=== PATIENT | male | born 1980 | race Caucasian/White ===

== ENCOUNTER 2017-05-28 17:52 | Emergency (ER) | payer OTHER ==
[~2017-05-28] VITALS: Ht 175.3 cm; Wt 82.0 kg
[~2017-05-28 17:52] MED LIST: CLIN1CAP6 PO; FERR324T4 PO; LACT PO
[2017-05-28 18:02] VITALS: BP 106/55; PULSE 118; RESP 16; TEMP 99; O2SAT 96
[2017-05-28] MEDS ORDERED: SODIUM CHLOR 0.9% 1000 ML INJ 1,000 ML IV ONE ×2 (18:08)
[2017-05-28] MEDS ORDERED: SODIUM CHLOR 0.9% 1000 ML INJ 400 ML IV ONE (18:08)
--- NOTE | 2017-05-28 18:38 | RADRPT ---
EXAM DATE/TIME: 05/28/2017 18:14 [facility] COMPARISON: CHEST SINGLE AP, July 29, 2015, 21:09. INDICATIONS : Fever. MEDICAL HISTORY : Unobtainable SURGICAL HISTORY : Unobtainable ENCOUNTER: Initial ACUITY: 1 day PAIN SCORE: Non-responsive. LOCATION: Bilateral chest FINDINGS: No significant new focal pleural or parenchymal opacities. Cardiomediastinal contours are stable. Hea led right midclavicular fracture. Osseous structures are intact. CONCLUSION: 1. No acute abnormality or significant interval change. Enoch Wilson MD on May 28, 2017 at 18:35 Board Certified Radiologist. This report was verified electronically.
[2017-05-28 18:40] VITALS: RESP 16; O2SAT 98
[2017-05-28 18:49] LABS: AUTOMATED NEUTROPHIL # 4.6 TH/MM3 (1.8-7.7); BASOPHIL % 0.8 % (0.0-2.0); EOSINOPHIL % 0.3 % (0.0-4.0); LYMPHOCYTE # 0.5 TH/MM3 (1.0-4.8); MEAN CELL VOLUME 67.7 FL (80.0-100.0); MEAN CORPUSCULAR HEMOGLOBIN 20.8 PG (27.0-34.0); MEAN CORPUSCULAR HGB CONC 30.7 % (32.0-36.0); MONO % 8.5 % (0.0-8.0); NEUT % 81.4 % (16.0-70.0); PLATELET COUNT 167 TH/MM3 (150-450); RED BLOOD COUNT 4.87 MIL/MM3 (4.50-5.90); RED CELL DISTRIBUTION WIDTH 26.7 % (11.6-17.2); WHITE BLOOD COUNT 5.6 TH/MM3 (4.0-11.0)
[2017-05-28 18:50] LABS: HEMO FLAGS AUTO DIFF
[2017-05-28 18:56] LABS: BLOOD, URINE TRACE (NEG); COMMENT (UR) CATH-CULT NOT IND; CULTURE IF INDICATED CATH CULTURE NOT IND; GLUCOSE,URINE NEG (NEG); HYALINE CAST, URINE 19 /lpf (RARE); KETONE, URINE TRACE mg/dL (NEG); MUCUS URINE FEW /lpf (OCC); NITRITE,URINE NEG (NEG); PH, URINE 5.5 (5.0-8.5); URINE COLOR YELLOW (YELLW/STRAW)
[2017-05-28 18:57] LABS: APTT (PATIENT) 24.2 SEC (24.3-30.1); INTERNATIONAL NORMALIZED RATIO 1.1 RATIO; PROTHROMBIN TIME - PATIENT 11.3 SEC (9.8-11.6)
[2017-05-28 19:09] LABS: ANION GAP 7 MEQ/L (5-15); AST (GOT) 34 U/L (15-37); BICARBONATE 26.3 MEQ/L (21.0-32.0); BLOOD UREA NITROGEN 11 MG/DL (7-18); CHLORIDE 107 MEQ/L (98-107); GLOMERULAR FILTRATION RATE 91 ML/MIN (>89); MAGNESIUM 2.2 MG/DL (1.5-2.5); POTASSIUM 4.2 MEQ/L (3.5-5.1); SODIUM (NA) 140 MEQ/L (136-145)
[2017-05-28 19:10] LABS: ALT (GPT) 27 U/L (12-78)
[2017-05-28 19:11] LABS: OVALOCYTES 1+ (NORMAL); PLATELET ESTIMATE SMEAR NORMAL (NORMAL); PLATELET MORPHOLOGY NORMAL (NORMAL); SCAN/DIFF AUTO DIFF CONFIRMED
[2017-05-28 19:14] LABS: ALKALINE PHOSPHATASE 72 U/L (45-117); CREATINE KINASE 239 U/L (39-308); TOTAL BILIRUBIN ADULT 0.3 MG/DL (0.2-1.0)
--- NOTE | 2017-05-28 19:14 | PD ---
HPI Chief Complaint: Altered Mental Status Time Seen by Provider: 18:34 Travel History International Travel<30 days: No Contact w/Intl Traveler<30days: No Traveled to known affect area: No History of Present Illness HPI Patient is a 36-year-old male presenting to the emergency department in the custody of law enforcement. According to EMS report patient presented to the [facility] at the skilled nursing complaining of abdominal pain, he then began to "lose it" . He was acting erratically and attempted to bite his right forearm. Guard state the patient has a history of drug use and there has been K2 circulating around the skilled nursing. Patient was given Ativan en route to the hospital. On arrival he is drowsy and is not answering questions. [facility] Past Medical History Medical History: Unable to Obtain Tetanus Vaccination: < 5 Years Past Surgical History Surgical History: Unable to Obtain Social History Alcohol Use: No Tobacco Use: Yes Substance Use: Yes Allergies-Medications (Allergen,Severity, Reaction): Coded Allergies: doxycycline (Unverified Allergy, Unknown, 05/28/17) penicillin G (Unverified Allergy, Unknown, 05/28/17) *MDRO Multi-Drug Resistant Organism (Verified Adverse Reaction, Unknown, 05/28/17) MRSA PCR positive 07/30/2015 MRSA arm wound 07/30/2015 Reported Meds & Prescriptions Reported Meds & Active Scripts Active Active Prescriptions or Reported Medications Unobtainable Review of Systems ROS Limitations: Uncooperative Except as stated in HPI: all other systems reviewed are Neg Cardiovascular: Positive: Tachycardia Gastrointestinal: Positive: Abdominal Pain Psychiatric: Positive: Substance Abuse Physical Exam Narrative GENERAL: Well-developed, well-nourished, drowsy male. Resting in no acute distress. SKIN: Warm and dry. Superficial bite jaime to right forearm just proximal to the wrist HEAD: Atraumatic. Normocephalic. EYES: Pupils equal and round. No scleral icterus. No injection or drainage. ENT: No nasal bleeding or discharge. Mucous membranes pink and moist. NECK: Trachea midline. No JVD. CARDIOVASCULAR: Tachycardic RESPIRATORY: No accessory muscle use. Clear to auscultation. Breath sounds equal bilaterally. GASTROINTESTINAL: Abdomen soft, non-tender, nondistended. Hepatic and splenic margins not palpable. MUSCULOSKELETAL: Extremities without clubbing, cyanosis, or edema. No obvious deformities. NEUROLOGICAL: Awake and alert. No obvious cranial nerve deficits. Motor grossly within normal limits. Five out of 5 muscle strength in the arms and legs. Normal speech. Data Data Last Documented VS Vital Signs Date Time Temp Pulse Resp B/P (MAP) Pulse Ox O2 Delivery O2 Flow Rate FiO2 05/28/17 19:58 84 16 112/61 (78) 100 Nasal Cannula 2.00 05/28/17 18:02 99.0 Orders Orders Sepsis Workup Initiated (05/28/17 ) Electrocardiogram (05/28/17 18:08) Complete Blood Count With Diff (05/28/17 18:08) Comprehensive Metabolic Panel (05/28/17 18:08) Prothrombin Time / Inr (Pt) (05/28/17 18:08) Act Partial Throm Time (Ptt) (05/28/17 18:08) Lactic Acid Sepsis Protocol (05/28/17 18:08) Magnesium (Mg) (05/28/17 18:08) Lipase (05/28/17 18:08) Ckmb (Isoenzyme) Profile (05/28/17 18:08) Troponin I (05/28/17 18:08) Urinalysis - C+S If Indicated (05/28/17 18:08) Blood Culture (05/28/17 18:08) Chest, Single Ap (05/28/17 18:08) Blood Glucose (05/28/17 18:08) Ecg Monitoring (05/28/17 18:08) Iv Access Insert/Monitor (05/28/17 18:08) Oximetry (05/28/17 18:08) Oxygen Administration (05/28/17 18:08) Ct Brain W/O Iv Contrast(Rout) (05/28/17 18:08) Sodium Chlor 0.9% 1000 Ml Inj (Ns 1000 M (05/28/17 18:08) Sodium Chlor 0.9% 1000 Ml Inj (Ns 1000 M (05/28/17 18:08) Sodium Chlor 0.9% 1000 Ml Inj (Ns 1000 M (05/28/17 18:08) Drug Screen, Random Urine (05/28/17 18:08) Ct Abd/Pel W Iv Contrast(Rout) (05/28/17 ) Cath For Specimen (05/28/17 18:08) CKMB (05/28/17 18:20) CKMB% (05/28/17 18:20) Iohexol 350 Inj (Omnipaque 350 Inj) (05/28/17 19:37) Ed Discharge Order (05/28/17 21:16) Labs Laboratory Tests Test 05/28/17 18:20 05/28/17 18:33 05/28/17 20:15 White Blood Count 5.6 TH/MM3 Red Blood Count 4.87 MIL/MM3 Hemoglobin 10.1 GM/DL Hematocrit 33.0 % Mean Corpuscular Volume 67.7 FL Mean Corpuscular Hemoglobin 20.8 PG Mean Corpuscular Hemoglobin Concent 30.7 % Red Cell Distribution Width 26.7 % Platelet Count 167 TH/MM3 Mean Platelet Volume 9.2 FL Neutrophils (%) (Auto) 81.4 % Lymphocytes (%) (Auto) 9.0 % Monocytes (%) (Auto) 8.5 % Eosinophils (%) (Auto) 0.3 % Basophils (%) (Auto) 0.8 % Neutrophils # (Auto) 4.6 TH/MM3 Lymphocytes # (Auto) 0.5 TH/MM3 Monocytes # (Auto) 0.5 TH/MM3 Eosinophils # (Auto) 0.0 TH/MM3 Basophils # (Auto) 0.0 TH/MM3 CBC Comment AUTO DIFF Differential Comment AUTO DIFF CONFIRMED Platelet Estimate NORMAL Platelet Morphology Comment NORMAL Ovalocytes 1+ Prothrombin Time 11.3 SEC Prothromb Time International Ratio 1.1 RATIO Activated Partial Thromboplast Time 24.2 SEC Blood Urea Nitrogen 11 MG/DL Creatinine 0.93 MG/DL Random Glucose 92 MG/DL Total Protein 7.2 GM/DL Albumin 3.9 GM/DL Calcium Level 8.3 MG/DL Magnesium Level 2.2 MG/DL Alkaline Phosphatase 72 U/L Aspartate Amino Transf (AST/SGOT) 34 U/L Alanine Aminotransferase (ALT/SGPT) 27 U/L Total Bilirubin 0.3 MG/DL Sodium Level 140 MEQ/L Potassium Level 4.2 MEQ/L Chloride Level 107 MEQ/L Carbon Dioxide Level 26.3 MEQ/L Anion Gap 7 MEQ/L Estimat Glomerular Filtration Rate 91 ML/MIN Lactic Acid Level 2.6 mmol/L 0.9 mmol/L Total Creatine Kinase 239 U/L Creatine Kinase MB 1.5 NG/ML Troponin I LESS THAN 0.02 NG/ML Lipase 101 U/L Urine Color YELLOW Urine Turbidity CLEAR Urine pH 5.5 Urine Specific [place] 1.021 Urine Protein 30 mg/dL Urine Glucose (UA) NEG mg/dL Urine Ketones TRACE mg/dL Urine Occult Blood TRACE Urine Nitrite NEG Urine Bilirubin NEG Urine Urobilinogen LESS THAN 2.0 MG/DL Urine Leukocyte Esterase NEG Urine RBC 16 /hpf Urine WBC 2 /hpf Urine Hyaline Casts 19 /lpf Urine Mucus FEW /lpf Microscopic Urinalysis Comment CATH-CULT NOT IND Urine Opiates Screen NEG Urine Barbiturates Screen NEG Urine Amphetamines Screen NEG Urine Benzodiazepines Screen NEG Urine Cocaine Screen NEG Urine Cannabinoids Screen NEG MDM Medical Decision Making Medical Screen Exam Complete: Yes Emergency Medical Condition: Yes Interpretation(s) Vital Signs Date Time Temp Pulse Resp B/P (MAP) Pulse Ox O2 Delivery O2 Flow Rate FiO2 05/28/17 19:58 84 16 112/61 (78) 100 Nasal Cannula 2.00 05/28/17 18:40 16 98 Nasal Cannula 2.00 05/28/17 18:40 98 Nasal Cannula 2.00 05/28/17 18:02 99.0 118 16 106/55 (72) [address] 05/28/171807 Signed Impressions: Service Date/Time: Sunday, May 28, 2017 19:18 - CONCLUSION: 1. No acute intracranial abnormality. 2. 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 Sukhi Reilly MD Chest X-Ray 05/28/171807 Signed Impressions: Service Date/Time: Sunday, May 28, 2017 18:14 - CONCLUSION: 1. No acute abnormality or significant interval change. Enoch Wilson MD Abdomen/Pelvis CT 05/28/17 0000 Signed Impressions: Service Date/Time: Sunday, May 28, 2017 19:23 - CONCLUSION: 1. No acute abnormality demonstrated. 2. There is a 3 mm nonobstructing stone of the right kidney. Sukhi Reilly MD Laboratory Tests Test 05/28/17 18:20 05/28/17 18:33 05/28/17 20:15 White Blood Count 5.6 TH/MM3 Red Blood Count 4.87 MIL/MM3 Hemoglobin 10.1 GM/DL Hematocrit 33.0 % Mean Corpuscular Volume 67.7 FL Mean Corpuscular Hemoglobin 20.8 PG Mean Corpuscular Hemoglobin Concent 30.7 % Red Cell Distribution Width 26.7 % Platelet Count 167 TH/MM3 Mean Platelet Volume 9.2 FL Neutrophils (%) (Auto) 81.4 % Lymphocytes (%) (Auto) 9.0 % Monocytes (%) (Auto) 8.5 % Eosinophils (%) (Auto) 0.3 % Basophils (%) (Auto) 0.8 % Neutrophils # (Auto) 4.6 TH/MM3 Lymphocytes # (Auto) 0.5 TH/MM3 Monocytes # (Auto) 0.5 TH/MM3 Eosinophils # (Auto) 0.0 TH/MM3 Basophils # (Auto) 0.0 TH/MM3 CBC Comment AUTO DIFF Differential Comment AUTO DIFF CONFIRMED Platelet Estimate NORMAL Platelet Morphology Comment NORMAL Ovalocytes 1+ Prothrombin Time 11.3 SEC Prothromb Time International Ratio 1.1 RATIO Activated Partial Thromboplast Time 24.2 SEC Blood Urea Nitrogen 11 MG/DL Creatinine 0.93 MG/DL Random Glucose 92 MG/DL Total Protein 7.2 GM/DL Albumin 3.9 GM/DL Calcium Level 8.3 MG/DL Magnesium Level 2.2 MG/DL Alkaline Phosphatase 72 U/L Aspartate Amino Transf (AST/SGOT) 34 U/L Alanine Aminotransferase (ALT/SGPT) 27 U/L Total Bilirubin 0.3 MG/DL Sodium Level 140 MEQ/L Potassium Level 4.2 MEQ/L Chloride Level 107 MEQ/L Carbon Dioxide Level 26.3 MEQ/L Anion Gap 7 MEQ/L Estimat Glomerular Filtration Rate 91 ML/MIN Lactic Acid Level 2.6 mmol/L 0.9 mmol/L Total Creatine Kinase 239 U/L Creatine Kinase MB 1.5 NG/ML Troponin I LESS THAN 0.02 NG/ML Lipase 101 U/L Urine Color YELLOW Urine Turbidity CLEAR Urine pH 5.5 Urine Specific [place] 1.021 Urine Protein 30 mg/dL Urine Glucose (UA) NEG mg/dL Urine Ketones TRACE mg/dL Urine Occult Blood TRACE Urine Nitrite NEG Urine Bilirubin NEG Urine Urobilinogen LESS THAN 2.0 MG/DL Urine Leukocyte Esterase NEG Urine RBC 16 /hpf Urine WBC 2 /hpf Urine Hyaline Casts 19 /lpf Urine Mucus FEW /lpf Microscopic Urinalysis Comment CATH-CULT NOT IND Urine Opiates Screen NEG Urine Barbiturates Screen NEG Urine Amphetamines Screen NEG Urine Benzodiazepines Screen NEG Urine Cocaine Screen NEG Urine Cannabinoids Screen NEG Differential Diagnosis Sepsis versus obstruction versus metabolic abnormality versus substance abuse versus other Narrative Course Patient is a 36-year-old male brought into the emergency department for evaluation of altered mental status. There is a possibility that the patient used K2 at the skilled nursing. He did complain of abdominal pain prior to his erratic behavior starting. Labs and imaging ordered and pending. Patient is restrained in handcuffs and there are guards at the bedside. Sepsis workup initiated. IV fluids ordered. CBC with no acute findings CMP with no acute findings Initial lactic acid is 2.6, 3L IVFs ordered per sepsis protocol UA is not consistent with UTI UDS is negative. Pt reassessed and is more alert and answering questions appropriately. Will reassess lactic acid if normal patient will be discharged to law enforcement. Lactic acid 0.9. Patient continues to deny any any drug use. He is alert, oriented and awake. He is responding appropriately. Patient will be discharged back to law enforcement custody. Wound care to right wrist performed prior to discharge. Diagnosis Primary Impression: Medical clearance for incarceration Additional Impression: Lactic acid increased Referrals: Primary Care Physician Patient Instructions: General Instructions Med/Other Pt SpecificInfo: No Change to Meds Scripts Unable to Obtain Active Prescriptions or Reported Meds Disposition: [address] [employer] ENFORCEMNT Condition: Stable Helen Suero Jazmin ROBBINS May 28, 2017 19:14
[2017-05-28 19:26] LABS: CKMB 1.5 NG/ML (0.5-3.6)
[2017-05-28] MEDS ORDERED: IOHEXOL 350 MG/ML 10 ML VIAL (for RAD DIAG) IVCONTRAST ONE (19:37)
--- NOTE | 2017-05-28 19:41 | RADRPT ---
EXAM DATE/TIME: 05/28/2017 19:18 [facility] COMPARISON: No previous studies available for comparison. INDICATIONS : Altered mental status. RADIATION DOSE: 52.69 CTDIvol (mGy) MEDICAL HISTORY : None SURGICAL HISTORY : None. ENCOUNTER: Initial ACUITY: 1 day PAIN SCALE: 0/10 LOCATION: cranial TECHNIQUE: Multiple contiguous axial images were obtained of the head. Using automated exposure control and adj ustment of the mA and/or kV according to patient size, radiation dose was kept as low as reasonably a chievable to obtain optimal diagnostic quality images. DICOM format image data is available electro nically for review and comparison. FINDINGS: CEREBRUM: The ventricles are normal for age. No evidence of midline shift, mass lesion, hemorrhage or acute in farction. No extra-axial fluid collections are seen. Areas of chronic encephalomalacia are seen infe riorly of the frontal lobes, left worse than right POSTERIOR FOSSA: The cerebellum and brainstem are intact. The 4th ventricle is midline. The cerebellopontine angle i s unremarkable. EXTRACRANIAL: The visualized portion of the orbits is intact. SKULL: The calvaria is intact. No evidence of skull fracture. CONCLUSION: 1. No acute intracranial abnormality. 2. 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 Sukhi Reilly MD on May 28, 2017 at 19:37 Board Certified Radiologist. This report was verified electronically.
--- NOTE | 2017-05-28 19:47 | RADRPT ---
EXAM DATE/TIME: 05/28/2017 19:23 [facility] COMPARISON: No previous studies available for comparison. INDICATIONS : Diffuse abdominal pain. IV CONTRAST: 72 cc Omnipaque 350 (iohexol) IV ORAL CONTRAST: No oral contrast ingested. RADIATION DOSE: 12.63 CTDIvol (mGy) MEDICAL HISTORY : None SURGICAL HISTORY : None. ENCOUNTER: Initial ACUITY: 1 day PAIN SCALE: 4/10 LOCATION: Bilateral abdomen TECHNIQUE: Volumetric scanning of the abdomen and pelvis was performed. Using automated exposure control and ad justment of the mA and/or kV according to patient size, radiation dose was kept as low as reasonably achievable to obtain optimal diagnostic quality images. DICOM format image data is available electro nically for review and comparison. FINDINGS: LOWER LUNGS: The visualized lower lungs are clear. LIVER: Homogeneous density without lesion. There is no dilation of the biliary tree. No calcified gallston es. SPLEEN: Normal size without lesion. PANCREAS: Within normal limits. KIDNEYS: There is a 3 mm nonobstructing stone in the right mid zone to lower pole. ADRENAL GLANDS: Within normal limits. VASCULAR: There is no aortic aneurysm. BOWEL/MESENTERY: The stomach, small bowel, and colon demonstrate no acute abnormality. There is no free intraperitone al air or fluid. ABDOMINAL WALL: Within normal limits. RETROPERITONEUM: There is no lymphadenopathy. BLADDER: No wall thickening or mass. REPRODUCTIVE: Within normal limits. INGUINAL: There is no lymphadenopathy or hernia. MUSCULOSKELETAL: Within normal limits for patient age. CONCLUSION: 1. No acute abnormality demonstrated. 2. There is a 3 mm nonobstructing stone of the right kidney. Sukhi Reilly MD on May 28, 2017 at 19:42 Board Certified Radiologist. This report was verified electronically.
[2017-05-28 19:58] VITALS: BP 112/61; PULSE 84; RESP 16; O2SAT 100
[2017-05-28 20:37] LABS: LACTIC ACID GHOST NOT REPORTABLE
--- NOTE | 2017-05-29 22:36 | EKG ---
Date Performed: 05/28/2017 Time Performed: 18:26:20 PTAGE: 36 years EKG: SINUS TACHYCARDIA ABNORMAL RHYTHM ECG INTERPRETATION BASED ON A DEFAULT AGE OF 39 YEARS NO PREVIOUS TRACING DOCTOR: Zacarias Meyer Interpretating Date/Time 05/29/2017 22:35:59
== END 2017-05-28 21:35 ==
LOC: NEPE 17:52
DX: Z02.89 Encounter for other administrative examinations (principal); R79.89 Other specified abnormal findings of blood chemistry; R10.9 Unspecified abdominal pain; R41.82 Altered mental status, unspecified; R00.0 Tachycardia, unspecified; R94.31 Abnormal electrocardiogram [ECG] [EKG]; Z72.0 Tobacco use
CPT/HCPCS: 70450; 71010; 74177; 80053; 80307; 81001; 82550; 82552; 83605; 83690; 83735; 84484; 85025; 85610; 85730; 87040; 93005; 96360; 99285; J7030; P9612; Q9967